=== PATIENT | female | born 1995 | race Hispanic/Latino ===

== ENCOUNTER → 2018-07-10 | Day surgery (SDC) | payer OTHER ==
[2018-07-07 16:12] LABS: BASOPHILS # (AUTO) 0.1 (0.0-0.1); BASOPHILS % 0.8 % (0.0-1.0); EOSINOPHILS % 0.6 % (0.0-6.0); HEMATOCRIT 37.9 % (34.2-44.1); HEMOGLOBIN 12.6 g/dL (12.0-16.0); LYMPHOCYTES # (AUTO) 2.4 (1.0-3.2); LYMPHOCYTES % 36.2 % (18.0-39.1); MEAN CORPUSCULAR HEMOGLOBIN 26.9 pg (28-32); MEAN CORPUSCULAR HGB CONC 33.2 g/dL (31-35); MONOCYTES # (AUTO) 0.7 (0.2-0.8); MONOCYTES % 10.1 % (4.4-11.3); NEUTROPHILS # (AUTO) 3.5 (2.1-6.9); NEUTROPHILS % 52.1 % (38.7-80.0); PLATELET COUNT 304 x10e3/uL (140-360); RED BLOOD COUNT 4.68 x10e6/uL (3.6-5.1); RED CELL DISTRIBUTION WIDTH 13.2 % (11.7-14.4)
[~2018-07-10] MED LIST: AUGMENTIN 500-1 EACH PO; BLISOVI PO; BUPIVACAINE 0.25%/EPI 30ML SDV INJ ONE; CEFAZOLIN SOD 1 GM VIAL ONE; DEXAMETHASONE SOD PHOS INJ 4 MG/ML VIAL ONE; FENTANYL CITRATE/PF 100MCG/2 ML INJ ONE; GLYCOPYRROLATE INJ 1MG/ 5 ML SYR ONE; HYDROCODONE/APAP 7.5MG-325MG 1 EA TAB ONE; LIDOCAINE HCL 2% LOCAL INJ 5 ML SDV VIAL INJ ONE; MIDAZOLAM HCL 2 MG/2 ML VIAL ONE; NEOSTIGMINE 5 MG/5ML SYR ONE; ONDANSETRON HCL INJ 2MG/ML 2ML 2 MG/ML VIAL ONE; PROPOFOL IV EMULSION 10 MG/ML 20 ML VIAL ONE; ROCURONIUM BROMIDE 10 MG/ML 5ML VIAL ONE; SEVOFLURANE INHAL SOLN 250 ML PEN BTL ONE
--- OUTSIDE RECORDS SUMMARY | 2018-07-10 07:39 | XMS REPORT | Encounter Summary ---
Author Organization Unknown Address [address] [place] [address] Phone [phone] Reason for Visit Medical Complaint Instructions 1. Acute sinusitis fluticasone propionate 50 mcg/actuation nasal spray,suspension 2. Body mass index 25-29 - overweight Discussion Note continue with dayquil.. increase fluid intake.. follow up with your pcp in 3days, sooner for worsening symptoms. You may also notify clinic for worsening symptoms. Patient educational handouts: No information available. Plan of Care Reminders Provider Appointments None recorded. Lab None recorded. Referral None recorded. Procedures None recorded. Surgeries None recorded. Imaging None recorded. Medications Name Start Date [place] Fe 1.5/30 (28) 1.5 mg-30 mcg (21)/75 mg (7) tablet TK 1 T PO QD fluticasone propionate 50 mcg/actuation nasal spray,suspension 1 spray in each nostril BID x 7days, then BID prn congestion/sinus pressure.. Medications Administered None recorded. Vitals Height Weight BMI Blood Pressure 4 ft 11 in 135 lbs 27.3 kg/m2 110/62 mm[Hg] Lab Results None recorded. Allergies Code Code System Name Reaction Severity Status Onset NKDA Problems None recorded. Procedures Date Name Performed by Tonsillectomy Information not available Vaccine List None recorded. Social History Smoking Status Never Smoker Past Encounters 05/22/2018 Acute Sinusitis; Body Mass Index 25-29 - Overweight Data CHANELLE Cortes: [address] [place] [address], Ph. History of Present Illness [id number]-Enzjwwu Reported By: Patient HPI: Location: head/sinuses. Quality: productive cough, nasal/sinus congestion, dry cough. Duration: 5days. Onset/Timing: gradual. Context: sick contact. Modifying factors: OTC medication. Associated Symptoms: no sore throat, no vomiting, no diarrhea, no rash, no nausea, no fever, no muscle aches, headache Notes: declined instant test Review of Systems Basic Reported By: Patient Constitutional: Constitutional: no fever Myzi-Bcmn-Emwwc-Throat: Nose: nose/sinus problems. Mouth/Throat: no sore throat Respiratory: Respiratory: cough Gastrointestinal: Gastrointestinal: no abdominal pain, no vomiting / diarrhea Genitourinary: Genitourinary: no urinary complaints Musculoskeletal: Musculoskeletal: no muscle aches Neurologic: Neurologic: no headaches Physical Exam Adult Basic Reported By: Patient Constitutional: General Appearance: healthy-appearing, well-nourished, well-developed. Level of Distress: NAD. Ambulation: ambulating normally Psychiatric: Mental Status: active and alert. Orientation: to time, to place, to person Eyes: Lids and Conjunctivae: non-injected, no discharge, no pallor Lbh-Mkar-Ugfjz-Throat: Ears: no lesions on external ear, no outer ear tenderness, EACs clear, TMs clear. Hearing: no hearing loss. Nose: no lesions on external nose, nares patent, no septal deviation, nasal passages clear, sinus tenderness, nasal discharge--rhinorrhea; enlarged turbinates. Lips, Teeth, and Gums: no mouth or lip ulcers, no bleeding gums, normal dentition. Oropharynx: moist mucous membranes, no erythema, no exudates, tonsils not enlarged Lungs: Respiratory effort: no dyspnea, no tachypnea, no use of accessory muscles, no intercostal retractions. Auscultation: breath sounds normal Cardiovascular: Heart Auscultation: RRR, no murmurs Musculoskeletal:: Motor Strength and Tone: normal motor strength Neurologic: Gait and Station: normal gait, normal station Skin: Inspection and palpation: no rash, no lesions, no ulcer, no abnormal nevi, no induration; on visible skin
--- OUTSIDE RECORDS SUMMARY | 2018-07-10 07:39 | XMS REPORT | Continuity of Care Document ---
Author Author [facility] Interface Address Unknown Phone Unavailable Problems Problem Status Onset Date Classification Date Reported Comments Source Immunization due 06/28/2018 Diagnosis 06/28/2018 [facility] Acute rhinosinusitis 06/28/2018 Diagnosis 06/28/2018 [facility] Body mass index 25-29 - overweight 06/28/2018 Diagnosis 06/28/2018 [facility] Feeling feverish 06/28/2018 Diagnosis 06/28/2018 [facility] Acute sinusitis 05/22/2018 Diagnosis 05/22/2018 [facility] Medications Medication Details Route Status Patient Instructions Ordering Provider Order Date Source Blisovi Fe 1.5/30 (28) 1.5 mg-30 mcg (21)/75 mg (7) tablet [place] Fe 1.5/30 (28) 1.5 mg-30 mcg (21)/75 mg (7) tablet TK 1 T PO QD Active [facility] Brompheniramine Maleate 0.4 MG/ML / Dextromethorphan Hydrobromide 2 MG/ML / Pseudoephedrine Hydrochloride 6 MG/ML Oral Solution [Bromfed DM] Bromfed DM 2 mg-30 mg-10 mg/5 mL oral syrup Take 10 mL every 4 hours by oral route as needed. Active [facility] Fluticasone propionate 0.05 MG/ACTUAT Metered Dose Nasal [place] fluticasone propionate 50 mcg/actuation nasal spray,suspension [place] 1 spray twice a day by intranasal route for 7 days. Active [facility] Allergies, Adverse Reactions, Alerts Substance Category Reaction Severity Reaction type Status Date Reported Comments Source Immunizations Immunization Date Given Site Status Last Updated Comments Source Results Order Name Results Value Reference Range Date Interpretation Comments Source Influenza A negative 06/28/2018 [facility] Influenza B negative 06/28/2018 [facility] Vital Signs Vital Sign Value Date Comments Source Diastolic (mm Hg) 74 06/28/2018 [facility] Height 59 06/28/2018 [facility] Systolic (mm Hg) 110 06/28/2018 [facility] Weight 135 06/28/2018 [facility] Diastolic (mm Hg) 62 05/22/2018 [facility] Height 59 05/22/2018 [facility] Systolic (mm Hg) 110 05/22/2018 [facility] Weight 135 05/22/2018 [facility] Encounters Location Location Details Encounter Type Encounter Number Reason For Visit Attending Provider ADM Date DC Date Status Source [place] - [facility] - [id number] Data CHANELLE Cortes: [address] [place] [address], Ph. [id number] Data Sophia 05/22/2018 [facility] [place] - [facility] - [id number] [facility]USH[facility] Yi-C: [address] [place] [address], Ph. [phone] [id number] Kelli Kirk 06/28/2018 [facility] Procedures Procedure Code Date Perfomer Comments Source Tonsillectomy [facility]
--- OUTSIDE RECORDS SUMMARY | 2018-07-10 07:39 | XMS REPORT | Encounter Summary ---
Author Organization Unknown Address [address] [place] [address] Phone [phone] Reason for Visit Medical Complaint Instructions 1. Acute rhinosinusitis fluticasone propionate 50 mcg/actuation nasal spray,suspension viral respiratory infection: care instructions Bromfed DM 2 mg-30 mg-10 mg/5 mL oral syrup 2. Feeling feverish rapid flu (A+B) 3. Body mass index 25-29 - overweight A healthy lifestyle: care instructions 4. Immunization due Discussion Note: None recorded. Plan of Care Patient Instructions Upper Respiratory Infection (URI) - Viral This is most likely viral and does not currently require treatment with an antibiotic. Antibiotics are not helpful with viral illnesses and may cause side effects. If symptoms continue and worsen past 7 days, call or visit [facility] for consideration of further treatment options. Symptoms tend to worsen until around days 3-5 and then should improve each day afterwards. Symptoms tend to last 7-14 days, but cough can linger beyond 14 days. Use over the counter medications as directed If symptoms continue to worsen instead of improve, or worsening cough, shortness of breath, sinus pressure/pain, thick mucus, or other concerning symptoms develop, call or visit [facility] or your primary care provider for further care. Seek immediate medical attention (ER or 911) if difficulty breathing, chest pain, chest pressure, severe headache, or other concerning symptoms develop. If you have any need to contact [facility], including questions or concerns, please contact or Reminders Provider Appointments None recorded. Lab Rapid Flu (A+B) 06/28/2018 [facility] Referral None recorded. Procedures None recorded. Surgeries None recorded. Imaging None recorded. Medications Name Start Date [place] Fe 1.5 (28) 1.5 mg-30 mcg (21)/75 mg (7) tablet TK 1 T PO QD Bromfed DM 2 mg-30 mg-10 mg/5 mL oral syrup Take 10 mL every 4 hours by oral route as needed. fluticasone propionate 50 mcg/actuation nasal spray,suspension [place] 1 spray twice a day by intranasal route for 7 days. Medications Administered None recorded. Vitals Height Weight BMI Blood Pressure 4 ft 11 in 135 lbs 27.3 kg/m2 110/74 mm[Hg] Lab Results Date Name Specimen Result Interpretation Description Value Range Status Address Rapid Flu (A+B) Influenza a negative [facility]: [address] [place] [address] Influenza B negative [facility]: [address] [place] [address] Allergies Code Code System Name Reaction Severity Status Onset NKDA Problems No Known Problems Procedures Date Name Performed by Tonsillectomy Information not available Vaccine List None recorded. Social History Smoking Status Never Smoker Past Encounters 06/28/2018 Acute Rhinosinusitis; Feeling Feverish; Body Mass Index 25-29 - Overweight; Immunization Due Kelli DIANNE KirkP-C: [address] [place] [address], Ph. History of Present Illness [id number] Reported By: Patient HPI: Location: head/sinuses. Quality: nasal/sinus congestion, dry cough. Duration: 2days. Onset/Timing: gradual. Context: no sick contacts, no foreign travel, non-smoker, allergies. Associated Symptoms: no sputum production, no shortness of breath, no wheezing, no change in number of pillows needed to sleep at night, no sweats, no significant weight gain, no significant weight loss, no morning cough, no vomiting, no diarrhea, no rash, no nausea, no fever, fatigue, sore throat, fever, muscle aches, headache Review of Systems:ROS as noted in the HPI Review of Systems Basic Reported By: Patient Physical Exam Adult Basic, Adult Female Complete Reported By: Patient Constitutional: General Appearance: healthy-appearing, well-nourished, well-developed. Level of Distress: NAD. Ambulation: ambulating normally Psychiatric: Mental Status: active and alert. Orientation: to time, to place, to person Eyes: Lids and Conjunctivae: non-injected, no discharge, no pallor Tsv-Ncly-Fkvnd-Throat: Ears: no lesions on external ear, no outer ear tenderness, EACs clear, TM opacified. Hearing: no hearing loss. Nose: no lesions on external nose, nares patent, no septal deviation, nasal passages clear, no sinus tenderness, nasal discharge--rhinorrhea, post nasal drip. Lips, Teeth, and Gums: no mouth or lip ulcers, no bleeding gums, normal dentition. Oropharynx: moist mucous membranes, no erythema, no exudates, tonsils absent Lungs: Respiratory effort: no dyspnea, no tachypnea, no use of accessory muscles, no intercostal retractions. Auscultation: breath sounds normal Cardiovascular: Heart Auscultation: RRR, no murmurs
[2018-07-10 13:00] VITALS: BP 112/70
--- NOTE | 2018-07-10 18:48 | Operative Report ---
DATE OF PROCEDURE: 07/10/2018 SURGEON: Raul Tovar MD PREOPERATIVE DIAGNOSIS: Complex pilonidal cyst with multiple sinuses. POSTOPERATIVE DIAGNOSIS: Complex pilonidal cyst with multiple sinuses. OPERATION PERFORMED: Wide excision of complex pilonidal cyst and sinuses with rotational gluteal flap closure. BUFFING WHEEL FORMER MACHINE: LAN Lema. ANESTHESIA: General. COMPLICATIONS: None. ESTIMATED BLOOD LOSS: Minimal. DESCRIPTION OF PROCEDURE: With the patient lying in bed in the prone position under good general endotracheal anesthesia, the perineum and lower back were prepped with Betadine solution and draped in the usual manner. An elliptical incision was then made to include all the pilonidal cyst and all the sinuses. This is a rather long pilonidal with the incision being roughly about 14 to 15 cm in size. The incision was then deepened through the subcutaneous tissue all the way down to the presacral fascia and the cyst was removed including all the sinuses without violating any of its borders. Hemostasis was ascertained. Gluteal flaps were then developed on both sides. The fascia was lifted and a wide release was then done on both sides to be able to reapproximate the fascia at the midline. After this was done, hemostasis was ascertained. The gluteal fascia was then reapproximated at the midline using interrupted sutures of 2-0 Vicryl. All layers were infiltrated on the way out with solution of 0.25% [place] subcutaneous tissue was approximated with 2-0 Vicryl and the skin was closed with interrupted vertical mattress sutures of 2-0 and 3-0 silk. Dressings were applied. The sponge, lap, and needle count was correct. The patient tolerated the procedure well and returned to the recovery room in stable condition. Raul Tovar MD JLR/MODL /[id number]
== END | disposition home or self-care (01) ==
LOC: OR 07:36
PROVIDERS: ATTEND Surgery
DX: L05.91 Pilonidal cyst without abscess (principal); Z01.812 Encounter for preprocedural laboratory examination
CPT/HCPCS: 11772; 36415; 81025; 85025; 88304; J0690; J1100; J2001; J2250; J2405; J2704; J3490